=== PATIENT | female | born 1930 | race Caucasian/White ===

== ENCOUNTER → 2016-12-25 | Outpatient (CLI) | payer MEDICARE, BC ==
[~2016-12-25] MED LIST: ARICEPT10 MG PO; DIOVAN160 MG PO; LIPITOR10 MG PO; RESVERATROL100 MG PO; SYNTHROID75 MCG PO; ULTRAM50 MG PO; ZOFRAN4 MG PO
== END | disposition short-term general hospital (02) ==
LOC: CLNEUR 01:55
DX: G30.9 Alzheimer's disease, unspecified (principal)